=== PATIENT | male | born 2000 | race Caucasian/White ===

== ENCOUNTER 2024-10-02 15:09 | Emergency (ER) | payer SELFPAY ==
--- NOTE | ~2024-10-02 | CT_ITS ---
EXAMINATION: CT LUMBAR SPINE WITHOUT CONTRAST CLINICAL INFORMATION: Trauma. COMPARISON: None available. TECHNIQUE: Multidetector helical imaging of the lumbar spine was obtained without intravenous contrast. Multiple axial reformats and coronal/sagittal reconstructions were created the technologist workstation for review. This CT examination was performed using dose optimization techniques as appropriate, variously including the following: *Automated exposure control. *Adjustment of mA and/or kV according to patient size (this includes techniques or standardized protocols for targeted exams where dose is matched to indication/reason for exam; i.e. extremities or head). *Use of iterative reconstruction technique. DLP: 414 mGy-cm FINDINGS: Mild right convex curvature of the lumbar spine. Partial straightening of the normal lumbar lordosis. Mild degenerative retrolisthesis of L5 on S1. Otherwise, normal anatomic alignment. No evidence of acute fracture or traumatic subluxation. The vertebral body heights are maintained. The intervertebral disc spaces are maintained. No suspicious lytic or sclerotic osseous lesions. No significant abnormalities of the paraspinal musculature. Limited evaluation of the intra-abdominal structures without significant abnormalities. The abdominal aorta is of normal contour and caliber. 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 AXIAL SPINAL LEVELS: L1-L2: Normal annular contour. There is mild right and no left facet joint arthropathy. There is no neural foraminal stenosis. There is no demonstrated spinal canal stenosis. L2-L3: Shallow diffuse disc bulge. There is mild right and no left facet joint arthropathy. There is no neural foraminal stenosis. There is no demonstrated spinal canal stenosis. L3-L4: Shallow diffuse disc bulge. There is mild bilateral facet joint arthropathy. There is no neural foraminal stenosis. There appears to be mild spinal canal stenosis exacerbated by prominent dorsal epidural lipomatous tissue. L4-L5: Shallow diffuse disc bulge. There is moderate bilateral facet joint arthropathy. There is no neural foraminal stenosis. There appears to be mild spinal canal stenosis exacerbated by prominent dorsal epidural lipomatous tissue. L5-S1: Mild diffuse disc bulge with superimposed central disc protrusion. There is mild bilateral facet joint arthropathy. There is mild right and no left neural foraminal stenosis. There is no demonstrated spinal canal stenosis. CT/CT lumbar spine wo IV con IMPRESSION: 1. No evidence of acute fracture or traumatic subluxation of the lumbar spine. 2. 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 Most notably on this limited exam without intrathecal contrast, there appears to be mild spinal canal stenosis at L3-L4 and L4-L5. 3. 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 Electronically signed by: Rakan Harden DO 10/02/2024 06:54 PM EST
[2024-10-02 15:18] VITALS: BP 134/81; BP 142/90; PULSE 71; PULSE 89; RESP 15; TEMP 36.8; O2SAT 96; O2SAT 97; BMI 31.7
[2024-10-02 15:23] VITALS: BP 134/81; PULSE 71; RESP 15; TEMP 36.8; O2SAT 97
--- NOTE | 2024-10-02 15:25 | PC.NURSE ---
Pt comes to ED today with c/o low back pain since last night (10/01/24.) Pt mostly Slovenian speaking, able to do simple Yoruba. VSS, A&Ox3, afebrile. Pt reports he was bending/lifting last night when he has sudden onset of back pain. Pain is 9/10 and worsens with movement.
--- NOTE | 2024-10-02 16:07 | ED_ITS ---
HPI - Back Pain/Injury General Chief Complaint: Back Pain/Injury Stated Complaint: BACK PAIN, BHUTANESE SPEAKING PER EMS Time Seen by Provider: 10/02/24 16:06 History of Present Illness ED Provider: Belkys Foster PA-C HPI Narrative: 24-year-old male presents with low back pain since last night. Patient states he lifted something heavy straining his back. His pain is severe. Denies weakness of lower extremities, erectile dysfunction, paresthesia, urinary retention or bowel incontinence. Related Data Previous Rx's ?Medication ?Instructions ?Recorded ketorolac 10 mg tablet 10 mg PO Q6H PRN pain #20 tabs 10/02/24 methocarbamol 750 mg tablet 1,500 mg (2 x 750 mg) PO Q8H PRN 10/02/24 pain #30 tabs Allergies Allergy/AdvReac Type Severity Reaction Status Date / Time No Known Allergies Allergy Verified 10/02/24 15:21 Review of Systems 2 Review of Systems: Yes all other systems are reviewed and are negative Constitutional: Constitutional: Denies fatigue and Denies fever(s) Cardiovascular: Cardiovascular: Denies chest pain and Denies dyspnea Respiratory: Respiratory: Denies dyspnea Gastrointestinal: Gastrointestinal: Denies abdominal pain Musculoskeletal: Musculoskeletal: Reports back pain, Denies muscle weakness, Denies numbness and Denies tingling Neurologic: Denies numbness and Denies tingling Endocrine: Endocrine: Denies fatigue PMFSH Past Medical History Attestation statement: The following information was validated with the patient. Social History Social History Smoked in Last 30 Days: Yes Use of substances other than those prescribed or required for medical reasons: No Advance Directives: No Advance Directives Information Provided: Yes Do you have a plan to hurt others: No Plan Physical Exam 2 Vital Signs: Vital Signs: Last Vital Signs Temp 98.2 F 10/02/24 15:23 Pulse 71 10/02/24 15:23 Resp 15 10/02/24 15:23 BP 134/81 10/02/24 15:23 Pulse Ox 97 10/02/24 15:23 O2 Del Method Room Air 10/02/24 15:23 BMI result Body Mass Index 31.7 Const: Other: Alert, well-appearing Orientation/consciousness: patient oriented x3 Resp: Other: Nonlabored respiration Cardio: Other: Normal peripheral perfusion Back/Spine/Pelvis: Other: No palpable midline tenderness Skin: Other: Warm dry no rash Neuro: General: patient oriented x3, gait normal, no focal motor deficits and CN's II-XI intact bilaterally Extrem: Other: Strength 5/5 bilateral lower extremities with resistance, able to perform straight leg raise greater than 30? on the left. Patient is unable to stand from a sitting position secondary to pain, he is unwilling to try. With assistance we pulled him up from a lying position to a s seated position, Psych: Other: Calm cooperative Medications Administered Discontinued Medications Generic Name Dose Route Start Last Admin Trade Name Tiana PRN Reason Stop Dose Admin Diazepam 5 mg 10/02/24 16:40 10/02/24 17:17 Diazepam 10 Mg/2 Ml Cartridge IVPUSH 10/02/24 16:41 5 mg STAT STA Administration Ketorolac Tromethamine 15 mg 10/02/24 16:40 10/02/24 17:17 Ketorolac Tromethamine 15 Mg/Ml Vial IVPUSH 10/02/24 16:41 15 mg ONCE ONE Administration Medical Decision Making Medical Decision Making MDM Narrative: No chronic issues History: Per patient I have considered the following differential diagnoses: Lumbar strain, lumbar radiculopathy, compression fracture, cauda equina, epidural abscess Plan: Patient has a red flag signs symptoms for cord compression, he has no risk factors for epidural abscess, he has a mechanism to support his pain related complaint today. Patient could have significant musculoskeletal strain, he is either unwilling or unable to stand from a seated position, he was ambulatory yesterday, today he is not secondary to pain. This is likely just severe musculoskeletal strain, we will medicate with Toradol and Valium, obtaining a CT of the lumbar spine to be sure there was no bony injury. We will send with anti-inflammatory, muscle relaxant he can follow up with primary care. I have independently reviewed the following tests: CT lumbar spine: CT/CT lumbar spine wo IV con IMPRESSION: 1. No evidence of acute fracture or traumatic subluxation of the lumbar spine. 2. 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 Most notably on this limited exam without intrathecal contrast, there appears to be mild spinal canal stenosis at L3-L4 and L4-L5. 3. 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 Electronically signed by: Rakan Rameshkaterin NOGUERA 10/02/2024 06:54 PM [facility] [place]iscuss[place] findings with the patient, he is feeling better after being medicated, we will send with a muscle relaxant and anti-inflammatory to his pharmacy. We will give him a work note. He will be instructed to follow up with primary care. Lab Data 10/02/24 17:07 10/02/24 17:07 Labs: Lab Results 10/02/24 Range/Units 17:07 WBC 10.7 (4.8-10.8) X10*3/uL RBC 5.12 (4.60-5.80) X10*6/uL Hgb 15.9 (14.0-18.0) g/dl Hct 44.4 (42.0-52.0) % MCV 86.7 (80.0-98.0) fL MCH 31.1 (27.0-33.0) pg MCHC 35.8 (31.0-36.0) g/dl RDW 11.4 (11.0-16.0) % Plt Count 167 (160-400) X10*3/uL MPV 12.4 (9.4-12.4) fL Immature Gran % (Auto) 0.3 (0.0-0.4) % Neut % (Auto) 75.6 H (45-73) % Lymph % (Auto) 16.5 L (20-40) % [place]ois % (Auto) 7.1 (2-11) % Eos % (Auto) 0.2 (0-4) % Baso % (Auto) 0.3 (0-2) % Lymph # (Auto) 1.8 (1.2-4.9) X10*3/uL [place] # (Auto) 0.8 (0.1-1.2) X10*3/uL Eos # (Auto) 0.0 (0.0-0.4) X10*3/uL Baso # (Auto) 0.0 (0.0-0.2) X10*3/uL Abs Immat Gran (auto) 0.03 (0.00-0.03) X10*3/uL Absolute Neuts (auto) 8.1 (2.0-8.3) x10*3/uL Absolute Nucleated RBC 0.000 (0.0-0.012) X10*3/uL Nucleated RBC % (auto) 0.0 (0.0-0.2) /100WBC Sodium 137 (135-145) mmol/L Potassium 4.0 (3.3-5.1) mmol/L Chloride 105 (96-108) mmol/L Carbon Dioxide 23 (22-29) mmol/L Anion Gap 13 (12-20) BUN 14 (9-16) mg/dL Creatinine 0.77 (0.5-1.4) mg/dL Estim Creat Clear Calc 151.9 Estimated GFR > 60 Random Glucose 89 (60-115) mg/dL Calcium 10.3 H (8.4-10.2) mg/dL Magnesium 2.2 (1.6-2.6) mg/dL Total Bilirubin 0.6 (0.0-1.0) mg/dL AST 23 (5-37) U/L ALT 29 (0-40) U/L Alkaline Phosphatase 82 (39-117) U/L Total Protein 8.0 (6.5-8.0) g/dL Albumin 5.1 H (3.5-5.0) g/dL Discharge Plan Discharge Clinical Impression: Strain of lumbar region Patient Disposition: Home, Self-Care Instructions: Acute Low Back Pain (ED) Additional Instructions: You have sustained musculoskeletal strain of your lower back. See home care instructions. Use the ketorolac, this is an anti-inflammatory, for your pain. Use the methocarbamol, this is a muscle relaxant, for your pain as well. To note the muscle relaxant can cause drowsiness, do not drive or operate machinery while taking the medication. You need to follow up with your primary care provider, if the muscle strain persists, you may require physical therapy, your primary care provider can help you arrange this. Prescriptions: New ketorolac 10 mg tablet 10 mg PO Q6H PRN (Reason: pain) Qty: 20 0RF Rx Instructions: maximum total duration of 5 days from all oral, intranasal, or parenteral formulations. The patient received an IV dose of Toradol here in the emergency department. methocarbamol 750 mg tablet 1,500 mg PO Q8H PRN (Reason: pain) Qty: 30 0RF Stand Alone Forms: Work/School Release Print Language: Bengali
[2024-10-02 17:11] LABS: MANUAL DIFF FLAG NO
[2024-10-02] MEDS: Ketorolac Tromethamine 15 MG/ML VIAL IVPUSH (17:17)
[2024-10-02] MEDS: diazePAM 10 MG/2 ML CARTRIDGE 5 MG IVPUSH (17:17)
[2024-10-02 17:18] LABS: Basophils Percent Auto 0.3 % (0-2); Eosinophils Percent Auto 0.2 % (0-4); Hematocrit 44.4 % (42.0-52.0); Hemoglobin 15.9 g/dl (14.0-18.0); Imm Gran Abs Auto 0.03 X10*3/uL (0.00-0.03); Imm Gran Pct Auto 0.3 % (0.0-0.4); Lymphocytes Absolute Auto 1.8 X10*3/uL (1.2-4.9); Lymphocytes Percent Auto 16.5 % (20-40); Mean Corpuscular HGB Conc 35.8 g/dl (31.0-36.0); Mean Corpuscular Hemoglobin 31.1 pg (27.0-33.0); Mean Corpuscular Volume 86.7 fL (80.0-98.0); Mean Platelet Volume 12.4 fL (9.4-12.4); Monocytes Absolute Auto 0.8 X10*3/uL (0.1-1.2); Monocytes Percent Auto 7.1 % (2-11); Neutrophils Absolute Auto 8.1 x10*3/uL (2.0-8.3); Neutrophils Percent Auto 75.6 % (45-73); Platelet Count 167 X10*3/uL (160-400); Red Blood Count 5.12 X10*6/uL (4.60-5.80); Red Cell Distribution Width 11.4 % (11.0-16.0); White Blood Count 10.7 X10*3/uL (4.8-10.8)
[2024-10-02 17:28] LABS: Alanine Aminotransferase 29 U/L (0-40); Albumin Level 5.1 g/dL (3.5-5.0); Alkaline Phosphatase 82 U/L (39-117); Anion Gap 13 (12-20); Aspartate Amino Transferase 23 U/L (5-37); Bilirubin Total 0.6 mg/dL (0.0-1.0); Blood Urea Nitrogen 14 mg/dL (9-16); Calcium 10.3 mg/dL (8.4-10.2); Carbon Dioxide 23 mmol/L (22-29); Chloride 105 mmol/L (96-108); Creatinine Clr Calc Pharmacy 151.9; Estimated Glomerular Filt Rate > 60; Glucose Random 89 mg/dL (60-115); Magnesium 2.2 mg/dL (1.6-2.6); Sodium 137 mmol/L (135-145)
--- NOTE | 2024-10-02 18:57 | PC.NURSE ---
received report from Abbie NAVARRO, assume care of pt at this time
[2024-10-02 20:43] VITALS: BP 134/81; PULSE 71; RESP 15; TEMP 36.8; O2SAT 97
== END 2024-10-02 20:44 | disposition home or self-care (01) ==
PROVIDERS: Physician Assistant Medical; Emergency Provider Internal Medicine
DX: S39.012A Strain of muscle, fascia and tendon of lower back, initial encounter (principal); X50.0XXA Overexertion from strenuous movement or load, initial encounter; Y93.89 Activity, other specified; Y92.89 Other specified places as the place of occurrence of the external cause; Y99.8 Other external cause status; Z79.899 Other long term (current) drug therapy
CPT/HCPCS: 36415; 72131; 80053; 83735; 85025; 96374; 96375; 99284; J1885; J3360